=== PATIENT | male | born 1985 | race Caucasian/White ===

== ENCOUNTER 2020-09-05 12:03 | Emergency (ER) | payer MEDICAID ==
[~2020-09-05] VITALS: Ht 182.9 cm; Wt 77.6 kg
[2020-09-05 12:15] VITALS: BP 137/85; Ht 182.9 cm; Wt 77.6 kg
== END 2020-09-05 12:52 | disposition home or self-care (01) ==
LOC: ED 12:03
DX: K04.7 Periapical abscess without sinus (principal); R03.0 Elevated blood-pressure reading, without diagnosis of hypertension; F17.210 Nicotine dependence, cigarettes, uncomplicated
CPT/HCPCS: 99406